=== PATIENT | female | born 1995 | race Caucasian/White ===

== ENCOUNTER 2025-06-22 13:06 | Outpatient (CLI) | payer BC ==
[2025-06-22 16:38] VITALS: BP 128/73; PULSE 75; RESP 16; TEMP 98
--- NOTE | 2025-06-23 09:40 | P.MSEPDOC ---
Presenting Problems - Arrival Data Date of Arrival on Unit: 06/22/25 Time of Arrival on Unit: 13:06 Mode of Transport: Wheelchair - Complaint OB-Reason for Admission/Chief Complaint: Other Comment: pt states she feel on her abd slipped on wet grass this afternoon about 1145 am. pt denies any bleeding or cramping at this time. pt on monitor reactive NST v/s stable will watdh patient for 4 hours after the time of her fall Medical History - Information : 1 Para: 0 Term: 0 : 0 Abortions: Spontaneous or Elective: 0 Number of Living Children: 0 - Gestational Age Gestational Age by ANDRA (wks/days): 37 Weeks and 3 Days Review of Systems - Review of Systems Constitutional: No problems Breast: No problems ENT: No problems Cardiovascular: No problems Respiratory: No problems Gastrointestinal: No problems Genitourinary: No problems Musculoskeletal: No problems Neurological: No problems Skin: No problems Vital Signs - Temperature Temperature: 98 F Temperature Source: Oral - Pulse Right Brachial Pulse Rate: 75 Pulse Assessment Method: Automatic Cuff - Respirations Respiratory Rate: 16 Oxygen Delivery Method: Room Air O2 Sat by Pulse Oximetry: 98 - Blood Pressure Right Arm Blood Pressure: 128/73 Blood Pressure Mean: 91 Blood Pressure Source: Automatic Cuff Medical Screen Scoring - Cervical Exam Membranes: Intact - Uterine Contractions Intensity: Mild Resting: Soft to palpation - Assessment - Baby A Baseline FHR: 130 Heart Rate - NICHD Category: Category I (Normal) NST: Reactive Physician Notification - Physician Notified Physician Notified Date: 06/22/25 Physician Notified Time: 14:04 New Order Received: Yes - Notification Comment Comment: WATCH PATIENT FOR [address] PHILIPPE INDEPARTMENT AT 1500 VIEWED STRIPS AND NEW ORDERS RECEIVED Maternal Triage Index - Non-Urgent/Priority 4 Non-Urgent Priority 4: Yes Criteria Met for Priority 4: 37/3/7 weeks gestation SLIPPED ON WET GRASS AND FEEL ON ABD. V/S STABLE ABD SOFT AND NONTNDER REACTIVE NST WATCHED PATIENT FOR 4 HOURS WITH RACTIVE STRIP. PT DENIES FEELING ANY CONTRACTIONS OR CRAMPING AND NO BLEEING NOTED Disposition - Disposition OB Disposition: Discharge to home Discharge Date: 06/22/25 Discharge Time: 16:10 I agree with the RN Medical Screening Exam: Yes Physician's MSE Comment: I have neither seen nor examined the patient. Case reviewed; plan agreed upon as documented in EMR&OBIX.: Yes Diagnosis: RELATED CONDITIONS, UNSPECIFIED, THIRD TRIMESTER
== END 2025-06-22 16:10 | disposition home or self-care (01) ==
LOC: FBPOP 13:06
PROVIDERS: ATTEND Obstetrics & Gynecology
DX: O26.893 Other specified pregnancy related conditions, third trimester (principal); Z3A.37 37 weeks gestation of pregnancy
CPT/HCPCS: 59025; 99213